=== PATIENT | female | born 1995 | race Caucasian/White ===

== ENCOUNTER → 2017-03-16 | Outpatient (CLI) | payer MEDICAID ==
[~2017-03-16] MED LIST: NOMEDS XX; PRENATAL PLUS1 TA1 PO; SEPTRA DS 800 M1 TAB PO
[2017-03-16 15:55] LABS: LYMPH # 2.5 K/mm3 (0.7-4.5); LYMPH % 17.7 % (10-50.0)
[2017-03-16 16:09] LABS: HEMOGLOBIN 12.4 g/dL (12.2-16.2)
[2017-03-16 16:31] LABS: 1 HR URINE GLUCOSE NEGATIVE mg/ml
== END ==
LOC: LAB 14:34
PROVIDERS: Obstetrics & Gynecology
DX: Z13.1 Encounter for screening for diabetes mellitus (principal)